=== PATIENT | male | born 1985 | race African-American/Black ===

== ENCOUNTER 2017-01-13 11:12 | Emergency (ER) | payer SELFPAY ==
[~2017-01-13] VITALS: Ht 172.7 cm; Wt 70.5 kg
[~2017-01-13 11:12] MED LIST: NO MEDICATIONS; ROBAXIN500 MG PO
== END 2017-01-13 11:48 | disposition home or self-care (01) ==
LOC: SED 11:12
DX: S61.412A Laceration without foreign body of left hand, initial encounter (principal); F17.200 Nicotine dependence, unspecified, uncomplicated; Z88.0 Allergy status to penicillin; X58.XXXA Exposure to other specified factors, initial encounter; Y92.009 Unspecified place in unspecified non-institutional (private) residence as the place of occurrence of the external cause
CPT/HCPCS: 12002; 99283